=== PATIENT | female | born 1950 | race Hispanic/Latino ===

== ENCOUNTER 2017-04-20 14:26 | Emergency (ER) | payer MEDICARE, OTHER ==
[~2017-04-20 14:26] MED LIST: ALBUTEROL HFA IH; FENO135C PO; IBUP-2077 PO; LOSA1TAB54 PO; LOVA20TA3 PO; MAGN500C15 PO; METF10004 PO; POTA99TA21 PO; SODI1TAB66 PO; VITA1CAP85 PO
[2017-04-20 15:00] LABS: BASOPHILS % (AUTO) 0.5 % (0.0-5.0); EOSINOPHILS % (AUTO) 2.7 % (0.0-8.0); HEMATOCRIT 40.9 % (36-48); LYMPHOCYTES % (AUTO) 40.7 % (21.0-51.0); MEAN CORPUSCULAR VOLUME 85.3 fL (79-99); MONOCYTES % (AUTO) 5.8 % (3.0-13.0); NEUTROPHILS % (AUTO) 50.3 % (40.0-77.0); NUCLEATED RED BLOOD CELLS 0.1 % (0.0-0.19); PLATELET COUNT (AUTO) 221 K/uL (130-400); RED BLOOD CELL COUNT(AUTO) 4.79 MIL/uL (4.00-5.50); RED CELL DISTRIBUTION WIDTH 14.1 % (11.0-15.5); WHITE BLOOD COUNT (AUTO) 7.9 K/uL (4.8-10.8)
[2017-04-20 15:12] LABS: CREATININE 0.9 mg/dL (0.5-1.5); POTASSIUM 3.7 mmol/L (3.5-5.1)
[2017-04-20 15:17] LABS: ALBUMIN 3.8 g/dL (3.5-5.0); BILIRUBIN,TOTAL 0.5 mg/dL (0.2-1.0); TOTAL PROTEIN, SERUM 7.7 g/dL (6.0-8.3)
== END 2017-04-20 16:27 | disposition home or self-care (01) ==
LOC: EDH 14:26
DX: R07.89 Other chest pain (principal); E78.5 Hyperlipidemia, unspecified; E11.9 Type 2 diabetes mellitus without complications; I10 Essential (primary) hypertension; Z90.710 Acquired absence of both cervix and uterus; Z98.890 Other specified postprocedural states; Z88.8 Allergy status to other drugs, medicaments and biological substances
CPT/HCPCS: 36415; 71045; 80053; 84484; 85025; 93005

== ENCOUNTER → 2017-11-15 | Outpatient (CLI) | payer MEDICARE, OTHER ==
[~2017-11-15] MED LIST changes: +METF-446 PO; -METF10004 PO
== END | disposition home or self-care (01) ==
LOC: RAH 08:49
PROVIDERS: ATTEND Physical Medicine & Rehabilitation
DX: M48.061 Spinal stenosis, lumbar region without neurogenic claudication (principal); M51.16 Intervertebral disc disorders with radiculopathy, lumbar region
CPT/HCPCS: 72148

== ENCOUNTER → 2018-07-25 | Outpatient (CLI) | payer MEDICARE, OTHER | END | disposition home or self-care (01) | LOC: RAH 14:16 | PROVIDERS: ATTEND Family Medicine | DX: Z12.31 Encounter for screening mammogram for malignant neoplasm of breast (principal) | CPT/HCPCS: 77067 ==

== ENCOUNTER → 2018-10-31 | Outpatient (CLI) | payer MEDICARE, OTHER | END | disposition home or self-care (01) | LOC: RAH 16:06 | PROVIDERS: ATTEND Family Medicine | DX: Z01.818 Encounter for other preprocedural examination (principal) | CPT/HCPCS: 71046 ==

== ENCOUNTER 2018-11-06 12:00 | Inpatient (IN) | payer MEDICARE, OTHER ==
[~2018-11-06] VITALS: Ht 160 cm; Wt 83.7 kg
[~2018-11-06 12:00] MED LIST changes: -ALBUTEROL HFA IH; -FENO135C PO; -IBUP-2077 PO; -LOVA20TA3 PO; -MAGN500C15 PO; -POTA99TA21 PO; -SODI1TAB66 PO; -VITA1CAP85 PO
[2018-11-06 16:11] VITALS: BP 140/68
[2018-11-06 16:27] LABS: APPEARANCE,URINE Clear (CLEAR); BILIRUBIN,URINE Negative (NEGATIVE); COLOR,URINE Yellow (YELLOW); GLUCOSE, URINE (UA) Negative (NEGATIVE); KETONES,URINE Negative (NEGATIVE); LEUKOCYTE ESTERASE ,URINE Moderate (NEGATIVE); NITRATE,URINE Negative (NEGATIVE); OCCULT BLOOD,URINE Moderate (NEGATIVE); PROTEIN,URINE Negative (NEGATIVE)
[2018-11-06] MEDS ORDERED: MAGN100T PO (16:40)
[2018-11-06] MEDS ORDERED: BIOT10004 PO (16:40)
[2018-11-06] MEDS ORDERED: ROSU10TA28 PO (16:40)
[2018-11-06] MEDS ORDERED: GABA-529 PO (16:40)
[2018-11-06 16:44] LABS: BACTERIA,URINE Few /HPF (None Seen); MUCUS,URINE Few LPF (None Seen)
[2018-11-06 16:44] LABS: INR 0.93 (0.85-1.15); PROTHROMBIN TIME 9.8 SEC (9.6-11.6)
--- NOTE | 2018-11-06 17:30 | NUR ---
ABNORMAL LABS ABNORMAL UA REPORTED TO DR. PAULETTE BROOKE MODERATE, URBC 2-5, UWBC 6-10, BACT FEW. ORDERS FOR GENTAMICIN 240 MG IVPB UPON ARRIVAL TO HOLDING AREA, SEND UA FOR URINE CULTURE.
[2018-11-07] VITALS (19 sets, daily range): BP systolic 90–129; BP diastolic 56–73
[2018-11-07] MEDS ORDERED: GENTAMICIN SULFATE 240 MG in SODIUM CHLORIDE 0.9% 100 ML IV PRN (06:00)
[2018-11-07] MEDS ORDERED: SODIUM CHLORIDE 0.9% 1000ML 1,000 ML IV ONE (09:58)
[2018-11-07] MEDS: CEFAZOLIN SODIUM 1 GM VIAL ONE ×2 (10:41→12:29)
[2018-11-07] MEDS ORDERED: ACETAMINOPHEN EXTRA STRENGTH 500 MG TABLET ONE (10:45)
[2018-11-07] MEDS ORDERED: METOCLOPRAMIDE 10 MG/2 ML VIAL ONE (10:45)
[2018-11-07] MEDS ORDERED: KETOROLAC TROMETHAMINE 15MG/ML ONE (10:45)
[2018-11-07] MEDS ORDERED: OXYCODONE HCL 10 MG TAB.SR.12H PO ONE (10:46)
[2018-11-07] MEDS ORDERED: CEFAZOLIN SODIUM 1 GM VIAL ONE ×2 (10:59→12:51)
[2018-11-07] MEDS ORDERED: TRANEXAMIC ACID 1000MG/10ML IV ONE ×2 (11:00→18:55)
[2018-11-07] MEDS ORDERED: MELOXICAM 7.5 MG TABLET PO SCH (11:00)
[2018-11-07] MEDS ORDERED: FENTANYL CITRATE PF 50 MCG/1 ML 2ML VIAL ONE (11:04)
[2018-11-07] MEDS ORDERED: ROCURONIUM 10MG/1ML SYR 10 MG/ML ML ONE ×2 (11:04→13:50)
[2018-11-07] MEDS ORDERED: LIDOCAINE PF 2% 5ML ABBOJECT ONE ×2 (11:04→15:51)
[2018-11-07] MEDS ORDERED: SUCCINYLCHOLINE 200MG/10ML SYR ONE (11:04)
[2018-11-07] MEDS ORDERED: PROPOFOL 10 MG/ML 20ML VIAL IV ONE (11:04)
[2018-11-07] MEDS ORDERED: ROPIVACAINE 0.5% 5MG/ML 30ML IJ ONE (11:06)
[2018-11-07] MEDS ORDERED: SODIUM CHLORIDE 0.9% 10 ML VIAL ONE (12:36)
[2018-11-07] MEDS ORDERED: PHENYLEPHRINE HCL 10 MG/ML 1ML VIAL IV ONE ×2 (12:36→14:55)
[2018-11-07] MEDS ORDERED: EPHEDRINE SULFATE 50 MG/ML AMPULE ONE (12:56)
[2018-11-07] MEDS ORDERED: CEFAZOLIN SODIUM 1 GM VIAL IRRIG ONE (13:22)
[2018-11-07] MEDS ORDERED: GLYCOPYRROLATE 1 MG/5 ML SYRINGE ONE (15:44)
[2018-11-07] MEDS ORDERED: ONDANSETRON HCL 4 MG/2 ML VIAL ONE (15:44)
[2018-11-07] MEDS ORDERED: KETOROLAC TROMETHAMINE 30MG/ML ONE (15:44)
[2018-11-07] MEDS ORDERED: NEOSTIGMINE 5MG/5ML SYR IV ONE (15:45)
[2018-11-07] MEDS ORDERED: POTASSIUM CHLORIDE 20 MEQ ERTAB PO PRN (16:00)
[2018-11-07] MEDS ORDERED: ONDANSETRON HCL 4 MG/2 ML VIAL IVP PRN (16:00)
[2018-11-07] MEDS ORDERED: TEMAZEPAM 15 MG CAPSULE PO PRN (16:00)
[2018-11-07] MEDS ORDERED: DiphenhydrAMINE HCL 50 MG/ML VIAL IVP PRN (16:00)
[2018-11-07] MEDS ORDERED: OXYCODONE HCL 5 MG TAB PO PRN (16:00)
[2018-11-07] MEDS ORDERED: POTASSIUM CHLORIDE 20MEQ/100ML 100 ML IV PRN (16:00)
[2018-11-07] MEDS ORDERED: LIDOCAINE HCL-MPF 1% 2ML VIAL IV PRN (16:00)
[2018-11-07] MEDS ORDERED: FE FUMARATE/FA/MV, MIN COMB#15 1 TAB PO PRN (16:00)
[2018-11-07] MEDS ORDERED: POTASSIUM CHLORIDE 10% ELIXIR 20 MEQ/15 ML UDCUP PO PRN (16:00)
[2018-11-07] MEDS ORDERED: CALCIUM CARBONATE 500 MG TABLET PO PRN (16:00)
[2018-11-07] MEDS ORDERED: TRAMADOL HCL 50 MG TABLET PO PRN (16:00)
[2018-11-07] MEDS: INSULIN HUMULIN R 100 UNIT/ML 3ML SQ SCH ×2 (16:30→21:00)
[2018-11-07] MEDS: ACETAMINOPHEN EXTRA STRENGTH 500 MG TABLET PO SCH ×2 (17:20→23:18)
[2018-11-07] MEDS: SODIUM CHLORIDE 0.9% 1000ML 1,000 ML IV SCH (17:20)
[2018-11-07] MEDS ORDERED: DOCU250C14 PO (18:44)
[2018-11-07] MEDS ORDERED: PHARMACY COMMUNICATION MISC SCH (19:00)
[2018-11-07] MEDS: METFORMIN HCL 500 MG TABLET PO SCH (19:07)
[2018-11-07] MEDS: DOCUSATE SODIUM 250 MG PO SCH (21:00)
[2018-11-07] MEDS ORDERED: PREGABALIN 25 MG CAP PO SCH (21:00)
[2018-11-07] MEDS: CEFAZOLIN SODIUM 1 GM VIAL IVP SCH (21:53)
[2018-11-07] MEDS: ASPIRIN 325 MG TABLET PO SCH (21:53)
[2018-11-07] MEDS: ATORVASTATIN CALCIUM 20 MG TABLET PO SCH (21:54)
[2018-11-07] MEDS: FAMOTIDINE 20MG TAB 20 MG TAB PO SCH (21:54)
[2018-11-08] VITALS (7 sets, daily range): BP systolic 95–123; BP diastolic 58–78
[2018-11-08] MEDS: SODIUM CHLORIDE 0.9% 1000ML 1,000 ML IV SCH ×2 (01:48→19:43)
[2018-11-08] MEDS: OXYCODONE HCL 5 MG TAB PO PRN ×2 (04:13→09:38)
[2018-11-08 04:54] LABS: CREATININE 1.1 mg/dL (0.5-1.5); POTASSIUM 3.8 mmol/L (3.5-5.1)
[2018-11-08] MEDS: CEFAZOLIN SODIUM 1 GM VIAL IVP SCH (05:31)
[2018-11-08] MEDS: INSULIN HUMULIN R 100 UNIT/ML 3ML SQ SCH ×4 (05:32→20:32)
[2018-11-08] MEDS: FAMOTIDINE 20MG TAB 20 MG TAB PO SCH ×2 (08:05→19:39)
[2018-11-08] MEDS: METFORMIN HCL 500 MG TABLET PO SCH ×2 (08:05→17:06)
[2018-11-08] MEDS: ASPIRIN 325 MG TABLET PO SCH (08:06)
[2018-11-08] MEDS: ACETAMINOPHEN EXTRA STRENGTH 500 MG TABLET PO SCH ×3 (08:06→23:12)
[2018-11-08] MEDS: LEVOFLOXACIN 500 MG TABLET PO SCH (08:06)
[2018-11-08] MEDS: MELOXICAM 7.5 MG TABLET PO SCH (08:07)
[2018-11-08] MEDS: GABAPENTIN 100 MG CAPSULE PO SCH (08:07)
[2018-11-08] MEDS: KETOROLAC TROMETHAMINE 15MG/ML IV PRN ×2 (08:08→17:12)
[2018-11-08] MEDS: POLYETHYLENE GLYCOL 3350 17 GM POWD.PACK PO SCH (08:08)
[2018-11-08] MEDS: LOSARTAN/HYDROCHLOROTHIAZIDE 50-12.5MG TABLET PO SCH (08:25)
--- NOTE | 2018-11-08 11:00 | NUR ---
INITAL AND REFERRAL MET W PT, SPOUSE, SISTERS, PT [id number], UNCOMFORTABLE, S/P L SHOULDER SURGERY, PREVIOSULY INDP, NO DME, HOME SAFE AND ACCESSIBLE, CONSENT FOR [facility] FAXED, [facility] TOMORROW Addendum: 11/09/18 at 1823 by TAWANA MOSS RN Amended: Links added.
[2018-11-08] MEDS ORDERED: HYDROMORPHONE PCA 10 MG/50 ML 50 ML IV PRN (11:15)
[2018-11-08] MEDS: IBUPROFEN 800 MG TAB PO SCH ×2 (11:28→19:42)
[2018-11-08] MEDS: BIOTIN 1000 MCG PO SCH (12:00)
[2018-11-08] MEDS: MAGNESIUM GLYCINATE PO SCH (12:00)
[2018-11-08] MEDS: ATORVASTATIN CALCIUM 20 MG TABLET PO SCH (19:40)
[2018-11-08] MEDS: DOCUSATE SODIUM 250 MG PO SCH (19:43)
[2018-11-09] MEDS: IBUPROFEN 800 MG TAB PO SCH ×2 (03:47→11:58)
[2018-11-09 03:51] VITALS: BP 115/75
[2018-11-09] MEDS: INSULIN HUMULIN R 100 UNIT/ML 3ML SQ SCH ×3 (05:33→16:30)
[2018-11-09 07:50] VITALS: BP 131/74
--- NOTE | 2018-11-09 09:00 | NUR ---
PATIENT COMPLAINT RIGHT EAR "NUMB" PATIENT STATES HE FEELS RIGHT EAR FEELS "NUMB". I ASKED PATIENT IF SHE REPORTED THIS TO DR. CALDWELL, MD ROUNDED ON PATIENT YESTERDAY. PATIENT REPLIED "YES, I TOLD HIM BUT HE DIDN'T SAY ANYTHING." PATIENT CONTINUED TO SAY "THEY TOLD ME THEY HAD TO GIVE ME ANOTHER NERVE BLOCK BECAUSE THE FIRST ONE DIDN'T TAKE. SO I THINK [FEELING OF NUMB EAR] IS PROBABLY THAT."
[2018-11-09] MEDS: POLYETHYLENE GLYCOL 3350 17 GM POWD.PACK PO SCH (09:47)
[2018-11-09] MEDS: METFORMIN HCL 500 MG TABLET PO SCH ×2 (09:48→17:22)
[2018-11-09] MEDS: LOSARTAN/HYDROCHLOROTHIAZIDE 50-12.5MG TABLET PO SCH (09:49)
[2018-11-09] MEDS: FAMOTIDINE 20MG TAB 20 MG TAB PO SCH (09:49)
[2018-11-09] MEDS: ACETAMINOPHEN EXTRA STRENGTH 500 MG TABLET PO SCH ×2 (09:50→17:22)
[2018-11-09] MEDS: LEVOFLOXACIN 500 MG TABLET PO SCH (09:51)
[2018-11-09] MEDS: GABAPENTIN 100 MG CAPSULE PO SCH (09:51)
[2018-11-09] MEDS: MELOXICAM 7.5 MG TABLET PO SCH (09:51)
[2018-11-09 11:18] VITALS: BP 108/66
[2018-11-09] MEDS: MAGNESIUM GLYCINATE PO SCH (12:00)
[2018-11-09] MEDS: BIOTIN 1000 MCG PO SCH (12:00)
[2018-11-09] MEDS ORDERED: ASPIRIN 325 MG TABLET PO SCH (15:18)
--- NOTE | 2018-11-09 15:20 | NUR ---
DR. CALDWELL MD HERE TO SEE PATIENT. I WAS NOT PRESENT WITH MD DURING HIS ROUND WITH PATIENT. DR. CALDWELL TOLD ME THAT PATIENT REPORTS "ENTIRE RIGHT SIDE OF FACE FEELS NUMB". I TOLD MD THAT PATIENT HAD NOT REPORTED TO ME ENTIRE RIGHT SIDE OF FACE FEELING NUMB, BUT THAT PATIENT DID TELL ME DURING ASSESSMENT THAT HER RIGHT EAR FELT NUMB. I ALSO TOLD DR. CALDWELL THAT PATIENT TOLD ME THAT SHE HAD TOLD HIM YESTERDAY. DR. CALDWELL REPLIED THAT PATIENT HAD NOT REPORTED THOSE SYMPTOMS YESTERDAY. ORDERED TO ORDER CT HEAD AND TO ADMINISTER ASPIRIN 350MG PO STAT.
[2018-11-09] MEDS ORDERED: ASPIRIN 325 MG TABLET ONE (15:26)
--- NOTE | 2018-11-09 15:28 | NUR ---
ASPIRIN ORDER CLARIFIED DR. CALDWELL TOLD ME HE MEANT TO ORDER ASPIRIN 325MG PO STAT. ADMINISTERED ASPIRIN 325 MG PO TO PATIENT.
--- NOTE | 2018-11-09 16:23 | NUR ---
13:55 - Patient was up in a regular chair and was able to perform left upper extremity strengthening exercises as tolerated for left elbow flexion, shoulder shrug, left arm touching her forehead and opposite shoulder 5x. Patient states that she feels like her left arm is swollen and hematoma increase to left biceps area.Dr. Chavez was in the Nurses station and was notified and went to see patient in the room.Patient is able to ambulate in the room and hallway safely and independently.Physical Therapist recalled from this AM PT treatment that she was expressing numbness to her left side of her face.Per EMETERIO Arnold patient was ordered CT of the brain by .Pending result. Addendum: 11/09/18 at 1631 by MIKE RODRÍGUEZ, PT PT Amended: Links added.
[2018-11-09] MEDS ORDERED: ASPI-1005 PO (16:44)
[2018-11-09] MEDS ORDERED: IBUP-2070 PO (16:44)
--- NOTE | 2018-11-09 18:30 | NUR ---
DISCHARGE DISCHARGE TEACHING PROVIDED TO PATIENT REGARDING RX (ASA, IBUPROFEN), LEFT SHOULDER INCISION DRESSING TO BE REMOVED ON 11/12/18, ARM SLING TO BE KEPT IN PLACE WHILE AMBULATING, SCHEDULED F/U APPT WITH DR. CALDWELL. PERFORMED LEFT SHOULDER DRESSING CHANGE. LEFT SHOULDER INCISIONS NOTED TO BE APPROXIMATED, NO DRAINAGE NOTED, NOTED BRUISING TO LEFT UPPER ARM. REMOVED LEFT SHOULDER HEMOVAC, DRAINAGE TIP INTACT, NO RESISTANCE NOTED DURING REMOVAL. CLEANSED LEFT SHOULDER INCISION WITH BETADINE, COVERED WITH NONADHERENT GAUZE, SECURED WITH TEGADERM. REMOVED 20G FROM RIGHT AC, CATHETER TIP INTACT. PATIENT TO BE DRIVEN HOME BY HER REPORT GIVEN TO JYOTI Mathur RN OF [facility] [phone]. INFORMED NURSE OF DR. CALDWELL DISCHARGE ORDERS (DRESSING REMOVAL, RX, F/U APPT, PT ORDERS). DISCHARGE ORDERS FAXED TO [facility] [phone].
--- NOTE | 2018-11-09 18:47 | NUR ---
T/C PLACED TO [facility] T/C PLACED TO [facility], SPOKE WITH IAN, SAID THEY RECEIVED PRESCRIPTION VIA AND IS BEING PROCESSED. INFORMED PT THAT PHARMACY HAS RECEIVED PRESCRIPTIONS.
[2018-11-10] MEDS ORDERED: BISACODYL 10 MG SUPP.RECT RC PRN (16:00)
== END 2018-11-09 19:10 | disposition home health service (06) | DRG 483 ==
LOC: EDSTATUS 12:00 → DAHIP 11-07 08:30 → 4AH 11-07 17:24
PROVIDERS: ADMIT Orthopaedic Surgery; ATTEND Orthopaedic Surgery
PROC: 0RRK00Z Replacement of Left Shoulder Joint with Reverse Ball and Socket Synthetic Substitute, Open Approach (ICD-10-PCS; principal; 2018-11-07 12:00)
DX: M75.102 Unspecified rotator cuff tear or rupture of left shoulder, not specified as traumatic (principal); E11.9 Type 2 diabetes mellitus without complications; I10 Essential (primary) hypertension; E78.00 Pure hypercholesterolemia, unspecified; G89.29 Other chronic pain; Z90.710 Acquired absence of both cervix and uterus; Z80.9 Family history of malignant neoplasm, unspecified
CPT/HCPCS: 36415; 70450; 73020; 80048; 81001; 82948; 85610; 87088; 87641; 88304; 88311; 96365; 96374; A4565; A4606; G0378; J0330; J0690; J1170; J1885; J2001; J2370; J2405; J2704; J2710; J2765; J2795; J3010; J3490; J7030

== ENCOUNTER → 2019-11-11 | Outpatient (CLI) | payer MEDICARE, OTHER ==
[~2019-11-11] MED LIST changes: +ASPI-1005 PO; +BIOT10004 PO; +DOCU250C14 PO; +GABA-529 PO; +IBUP-2070 PO; +MAGN100T PO; +ROSU10TA28 PO
== END | disposition home or self-care (01) ==
LOC: RAH 09:18
PROVIDERS: ATTEND Family Medicine
DX: Z12.31 Encounter for screening mammogram for malignant neoplasm of breast (principal); N64.89 Other specified disorders of breast
CPT/HCPCS: 77067

== ENCOUNTER → 2020-04-13 | Outpatient (CLI) | payer MEDICARE, OTHER | END | disposition home or self-care (01) | LOC: RAH 12:26 | PROVIDERS: ATTEND Internal Medicine | DX: E04.1 Nontoxic single thyroid nodule (principal) | CPT/HCPCS: 76536 ==

== ENCOUNTER → 2020-11-16 | Outpatient (CLI) | payer MEDICARE, OTHER | END | disposition home or self-care (01) | LOC: RAH 10:40 | PROVIDERS: ATTEND Internal Medicine | DX: E04.2 Nontoxic multinodular goiter (principal) | CPT/HCPCS: 76536 ==

== ENCOUNTER → 2022-03-23 | Outpatient (CLI) | payer MEDICARE | END | disposition home or self-care (01) | LOC: RAH 14:39 | PROVIDERS: ATTEND Family Medicine | DX: Z12.31 Encounter for screening mammogram for malignant neoplasm of breast (principal) | CPT/HCPCS: 77067 ==

== ENCOUNTER → 2022-07-14 | Outpatient (CLI) | payer MEDICARE | END | disposition home or self-care (01) | LOC: RAH 09:58 | PROVIDERS: ATTEND Family Medicine | DX: E11.36 Type 2 diabetes mellitus with diabetic cataract (principal); E11.9 Type 2 diabetes mellitus without complications | CPT/HCPCS: 76770 ==

== ENCOUNTER → 2022-10-07 | Outpatient (CLI) | payer MEDICARE | END | disposition home or self-care (01) | LOC: RAH 09:58 | PROVIDERS: ATTEND Family Medicine | DX: M47.816 Spondylosis without myelopathy or radiculopathy, lumbar region (principal); M54.50 Low back pain, unspecified; M48.07 Spinal stenosis, lumbosacral region; Z98.890 Other specified postprocedural states | CPT/HCPCS: 72100 ==

== ENCOUNTER → 2022-10-14 | Outpatient (CLI) | payer MEDICARE | END | disposition home or self-care (01) | LOC: RAH 09:27 | PROVIDERS: ATTEND Family Medicine | DX: M25.552 Pain in left hip (principal); Z98.890 Other specified postprocedural states | CPT/HCPCS: 73502 ==

== ENCOUNTER → 2023-03-24 | Outpatient (CLI) | payer MEDICARE | END | disposition home or self-care (01) | LOC: RAH 09:37 | PROVIDERS: ATTEND Family Medicine | DX: Z12.31 Encounter for screening mammogram for malignant neoplasm of breast (principal); R92.323 Mammographic fibroglandular density, bilateral breasts | CPT/HCPCS: 77067 ==

== ENCOUNTER → 2024-05-21 | Outpatient (CLI) | payer MEDICARE ==
[~2024-05-21] MED LIST changes: -ROSU10TA28 PO; +ROSU10TA72 PO
--- NOTE | 2024-05-23 10:30 | HMCIMG ---
MAMMO SCREENING BILATERAL HISTORY: Screening mammogram. COMPARISON: 03/24/2023 TECHNIQUE: Bilateral screening mammogram with CAD was performed with craniocaudal and mediolateral oblique projections. FINDINGS: There are scattered areas of fibroglandular density. There is no evidence of a dominant mass, or suspicious microcalcification. There is no evidence of nipple retraction or skin thickening. IMPRESSION: 1. Stable mammogram. Patient was entered into a reminder system with a target due date for their next mammogram. BI-RADS: CATEGORY 2: BENIGN FINDINGS Recommend monthly self breast exam as well as annual clinical examination. A negative x-ray should not delay biopsy if a dominant or clinically suspicious mass is present, since 8-10% of cancers are not identified by mammography. Dense breasts particularly, may obscure an underlying neoplasm. Some of these may be detected clinically and therefore, clinical examination is an essential part of breast evaluation.
== END | disposition home or self-care (01) ==
LOC: RAH 15:09
PROVIDERS: ATTEND Family Medicine
DX: Z12.31 Encounter for screening mammogram for malignant neoplasm of breast (principal); R92.323 Mammographic fibroglandular density, bilateral breasts
CPT/HCPCS: 77067

== ENCOUNTER → 2024-06-05 | Outpatient (CLI) | payer MEDICARE ==
--- NOTE | 2024-06-05 17:13 | HMCIMG ---
SHOULDER COMP 2+VWS RT HISTORY: Right shoulder pain COMPARISON: None TECHNIQUE: 2 images of right shoulder were obtained. FINDINGS: There is no acute displaced fracture or dislocation. Degenerative changes are seen. Postop changes are seen of right shoulder. IMPRESSION: 1. Findings as described above.
== END | disposition home or self-care (01) ==
LOC: RAH 13:30
PROVIDERS: ATTEND Physician Assistant
DX: M75.101 Unspecified rotator cuff tear or rupture of right shoulder, not specified as traumatic (principal); M19.011 Primary osteoarthritis, right shoulder; M25.811 Other specified joint disorders, right shoulder; M25.511 Pain in right shoulder; Z98.890 Other specified postprocedural states
CPT/HCPCS: 73030

== ENCOUNTER → 2024-08-01 | Outpatient (CLI) | payer MEDICARE ==
--- NOTE | 2024-08-01 14:05 | HMCIMG ---
MR SHOULDER RIGHT WO HISTORY: Right shoulder pain COMPARISON: None TECHNIQUE: MRI of the right shoulder was performed utilizing multiple pulse sequences in axial, coronal and sagittal planes. Patient was not given contrast through intravenous route. FINDINGS: No abnormal signal intensity is seen of the visualized bony structure. Hypertrophic degenerative changes are seen of the acromioclavicular joint. There is downward sloping of acromion in a medial to lateral direction encroaching upon the rotator cuff tendon and muscles. There is complete rotator cuff tendon tear with tendinous gap of 4 cm. There is fluid in the subacromial-subdeltoid post contrast. The glenoid labrum is intact. Fluid is seen in the biceps tendon to suggest a Kaitlin synovitis. Synovitis changes also seen with septation within the joint effusion. Bicipital tendon is seen within its groove. Small joint effusion is seen. IMPRESSION: 1. There is complete rotator cuff tendon tear with tendinous gap of 4 cm. There is fluid in the subacromial-subdeltoid post contrast.
== END | disposition home or self-care (01) ==
LOC: RAH 10:38
PROVIDERS: ATTEND Physical Medicine & Rehabilitation
DX: M75.121 Complete rotator cuff tear or rupture of right shoulder, not specified as traumatic (principal); M25.511 Pain in right shoulder
CPT/HCPCS: 73221